=== PATIENT | male | born 1975 ===

== ENCOUNTER 2021-02-11 11:15 | Inpatient (IN) | payer OTHER ==
[~2021-02-11] VITALS: Ht 177.8 cm; Wt 131.5 kg
[2021-02-11] MEDS ORDERED: VALSARTAN-HCTZ1 EAC2 (13:24)
[2021-02-11] MEDS ORDERED: WELLBUTRIN SR150 MG (13:25)
[2021-02-11] MEDS ORDERED: WELLBUTRIN SR150 MG PO (13:27)
[2021-02-11] MEDS ORDERED: BUSPIRONE HCL10 MG PO (13:28)
[2021-02-11] MEDS ORDERED: CLONAZEPAM0.5 M1 PO (13:29)
[2021-02-11] MEDS ORDERED: PREVACID30 MG PO (13:30)
[2021-02-11] MEDS ORDERED: TOPROL XL25 M1 PO (13:31)
[2021-02-16] MEDS ORDERED: PERCOCET 5-3251 EACH PO (10:10)
[2021-02-16] MEDS ORDERED: COLACE100 MG PO (10:10)
[2021-02-16] MEDS ORDERED: DIAZEPAM5 MG PO (10:10)
[2021-02-16] MEDS ORDERED: NEURONTIN800 MG PO (10:10)
[2021-02-16] MEDS ORDERED: MEDROLPACK PO (10:10)
[2021-02-16] MEDS ORDERED: AMOX-CLAV 875-1 EACH PO (10:10)
== END 2021-02-17 15:26 | disposition home or self-care (01) | DRG 455 ==
LOC: O/R 02-16 05:45 → PED 02-16 05:45 → O/R 02-16 09:48 → SURH 02-16 10:30 → PED 02-16 19:01
PROVIDERS: ADMIT Orthopaedic Surgery Orthopaedic Surgery of the Spine; ATTEND Orthopaedic Surgery Orthopaedic Surgery of the Spine
PROC: 0SG10J1 Fusion of 2 or more Lumbar Vertebral Joints with Synthetic Substitute, Posterior Approach, Posterior Column, Open Approach (ICD-10-PCS; 2021-02-16)
PROC: 0QB30ZZ Excision of Left Pelvic Bone, Open Approach (ICD-10-PCS; 2021-02-16)
PROC: 07DR3ZZ Extraction of Iliac Bone Marrow, Percutaneous Approach (ICD-10-PCS; 2021-02-16)
PROC: XRGC0R7 Fusion of 2 or more Lumbar Vertebral Joints using Custom-Made Anatomically Designed Interbody Fusion Device, Open Approach, New Technology Group 7 (ICD-10-PCS; principal; 2021-02-16 10:30)
DX: M41.86 Other forms of scoliosis, lumbar region (principal); M48.062 Spinal stenosis, lumbar region with neurogenic claudication; M43.16 Spondylolisthesis, lumbar region; M96.1 Postlaminectomy syndrome, not elsewhere classified